=== PATIENT | male | born 1960 | race Caucasian/White ===

== ENCOUNTER 2017-08-26 14:57 | Emergency (ER) | payer SELFPAY ==
[2017-08-26 15:13] VITALS: BP 128/78; PULSE 80; RESP 16; O2SAT 100
[2017-08-26] MEDS ORDERED: TETANUS/DIPHTHERIA TOXOID ADULT 0.5 ML VIAL IM ONE (15:45)
[2017-08-26 16:19] LABS: AUTOMATED NEUTROPHIL # 5.2 TH/MM3 (1.8-7.7); BASOPHIL # 0.1 TH/MM3 (0-0.2); BASOPHIL % 1.2 % (0.0-2.0); EOSINOPHIL # 0.1 TH/MM3 (0-0.4); HEMATOCRIT 41.6 % (39.0-51.0); HEMO FLAGS DIFF FINAL; LYMPH % 18.3 % (9.0-44.0); LYMPHOCYTE # 1.3 TH/MM3 (1.0-4.8); MEAN CELL VOLUME 95.8 FL (80.0-100.0); MEAN CORPUSCULAR HEMOGLOBIN 32.9 PG (27.0-34.0); MEAN CORPUSCULAR HGB CONC 34.4 % (32.0-36.0); MONO % 8.3 % (0.0-8.0); NEUT % 71.2 % (16.0-70.0); PLATELET COUNT 233 TH/MM3 (150-450); RED BLOOD COUNT 4.35 MIL/MM3 (4.50-5.90); RED CELL DISTRIBUTION WIDTH 13.4 % (11.6-17.2); WHITE BLOOD COUNT 7.3 TH/MM3 (4.0-11.0)
--- NOTE | 2017-08-26 16:34 | PD ---
HPI Chief Complaint: Psychiatric Symptoms Time Seen by Provider: 15:14 Travel History International Travel<30 days: No Contact w/Intl Traveler<30days: No Traveled to known affect area: No History of Present Illness HPI 57-year-old male that presents to the ED for evaluation of psychiatric illness. Patient was brought here by police for him to be evaluated by psychiatry for Jose Ramon. Apparently he has a history of schizo affective disorder and bipolar. He apparently does not take care of himself and has refused to see his own doctor on his own and police got involved and per record ordered he was sent here for evaluation. Per patient he has no psychiatric illness and was never diagnosed with any psychiatric illness and states that he does not believe he has schizophrenia. He denies any hallucinations. No suicidal or homicidal ideation. Some alcohol abuse but no substance abuse per patient. He denies any medical issues at this time. He denies taking any medications of any kind. Per medical records he does have a history of schizoaffective disorder. Most per patient is not very forthcoming with information and denies any psychiatric illness. History is limited because of this. He denies any hallucinations. PFSH Past Medical History Bipolar Disorder: Yes Cancer: No (See EMR) Diminished Hearing: No Headaches: No (See EMR) Schizophrenia: Yes Past Surgical History Eye Surgery: Yes (TO RIGHT EYE FROM TOO MUCH SUN) Social History Alcohol Use: No Tobacco Use: Yes (3-4 PPD) Allergies-Medications (Allergen,Severity, Reaction): Coded Allergies: penicillin G (Unverified Allergy, Unknown, 08/26/17) Reported Meds & Prescriptions Reported Meds & Active Scripts Active No Active Prescriptions or Reported Medications Review of Systems ROS Limitations: Poor Historian Except as stated in HPI: all other systems reviewed are Neg Physical Exam Exam Limitations: Poor Historian Narrative GENERAL: SKIN: Warm and dry. HEAD: Atraumatic. Normocephalic. EYES: Pupils equal and round. No scleral icterus. No injection or drainage. ENT: No nasal bleeding or discharge. Mucous membranes pink and moist. Tongue is midline. No uvula deviation. NECK: Trachea midline. No JVD. CARDIOVASCULAR: Regular rate and rhythm. No murmurs, S3, S4. RESPIRATORY: No accessory muscle use. Clear to auscultation. Breath sounds equal bilaterally. GASTROINTESTINAL: Abdomen soft, non-tender, nondistended. Hepatic and splenic margins not palpable. MUSCULOSKELETAL: Extremities without clubbing, cyanosis, or edema. No obvious deformities. Full range of motion of the upper and lower extremities bilaterally. 2+ pulses bilaterally. NEUROLOGICAL: Awake and alert. No obvious cranial nerve deficits. Motor grossly within normal limits. Five out of 5 muscle strength in the arms and legs. Normal speech. PSYCHIATRIC: Appropriate mood and affect; insight and judgment normal. Data Data Last Documented VS Vital Signs Date Time Temp Pulse Resp B/P (MAP) Pulse Ox O2 Delivery O2 Flow Rate FiO2 08/26/17 15:13 80 16 128/78 (95) 100 Orders Orders Complete Blood Count With Diff (08/26/17 15:13) Comprehensive Metabolic Panel (08/26/17 15:13) Psych Screen (08/26/17 15:13) Drug Screen, Random Urine (08/26/17 15:13) Alcohol (Ethanol) (08/26/17 15:13) Salicylates (Aspirin) (08/26/17 15:13) Tylenol (Acetaminophen) (08/26/17 15:13) Wound Care (08/26/17 15:41) Tetanus/Diphtheria Tox Adult (Tetanus/Di (08/26/17 15:45) Diet Regular Basic (08/26/17 Dinner) Labs Laboratory Tests Test 08/26/17 15:23 White Blood Count 7.3 TH/MM3 Red Blood Count 4.35 MIL/MM3 Hemoglobin 14.3 GM/DL Hematocrit 41.6 % Mean Corpuscular Volume 95.8 FL Mean Corpuscular Hemoglobin 32.9 PG Mean Corpuscular Hemoglobin Concent 34.4 % Red Cell Distribution Width 13.4 % Platelet Count 233 TH/MM3 Mean Platelet Volume 7.6 FL Neutrophils (%) (Auto) 71.2 % Lymphocytes (%) (Auto) 18.3 % Monocytes (%) (Auto) 8.3 % Eosinophils (%) (Auto) 1.0 % Basophils (%) (Auto) 1.2 % Neutrophils # (Auto) 5.2 TH/MM3 Lymphocytes # (Auto) 1.3 TH/MM3 Monocytes # (Auto) 0.6 TH/MM3 Eosinophils # (Auto) 0.1 TH/MM3 Basophils # (Auto) 0.1 TH/MM3 CBC Comment DIFF FINAL Differential Comment MDM Medical Decision Making Medical Screen Exam Complete: Yes Emergency Medical Condition: Yes Medical Record Reviewed: Yes Interpretation(s) CBC Diagram 08/26/17 15:23 Differential Diagnosis Depression versus suicidal ideation versus anxiety versus adjustment disorder versus mood disorder versus bipolar disorder versus schizophrenia versus paranoid disorder versus psychosis versus substance abuse versus alcohol abuse versus alcohol induced psychosis versus homicidality addition versus cutting versus personality disorder Narrative Course 57-year-old male that presents to the ED for evaluation of psychiatric illness. Patient was properly examined and was found to have signs and symptoms consistent with psychiatric illness. No sign of acute medical distress. Labs were drawn. Patient will be medically clear. Okay to be seen by psych. Mental health screening was discussed with the patient. Diagnosis Primary Impression: Schizoaffective disorder Qualified Codes: F25.9 - Schizoaffective disorder, unspecified Scripts No Active Prescriptions or Reported Meds Billy Mack Aug 26, 2017 16:34
[2017-08-26 16:35] LABS: ANION GAP 7 MEQ/L (5-15)
[2017-08-26 16:53] LABS: ACETAMINOPHEN LESS THAN 2.0 MCG/ML (10.0-30.0); ALCOHOL LESS THAN 3 MG/DL (0-5); ALKALINE PHOSPHATASE 64 U/L (45-117); ALT (GPT) 24 U/L (12-78); AST (GOT) 21 U/L (15-37); BICARBONATE 26.9 MEQ/L (21.0-32.0); BLOOD UREA NITROGEN 14 MG/DL (7-18); CHLORIDE 104 MEQ/L (98-107); GLOMERULAR FILTRATION RATE 78 ML/MIN (>89); POTASSIUM 4.1 MEQ/L (3.5-5.1); SODIUM (NA) 138 MEQ/L (136-145); TOTAL BILIRUBIN ADULT 0.3 MG/DL (0.2-1.0)
[2017-08-26 18:00] VITALS: BP 116/61; PULSE 67; RESP 18; TEMP 99.1; O2SAT 99
[2017-08-27 02:21] VITALS: BP 137/74; PULSE 62; RESP 17; O2SAT 100
[2017-08-27 06:24] VITALS: BP 123/65; PULSE 67; RESP 17; TEMP 98.9; O2SAT 97
[2017-08-27 11:00] VITALS: BP 110/63; PULSE 78; RESP 18; TEMP 98.9; O2SAT 98
[2017-08-27] MEDS ORDERED: ARIP10IN IM (12:19)
--- NOTE | 2017-08-27 12:27 | PD ---
History of Present Illness Chief Complaint: Psychiatric Symptoms Time Seen by Provider: 11:00 Travel History International Travel<30 Days: No Contact w/Intl Traveler<30days: No Known affected area: No Legal Status Legal Status: Involuntary History of Present Illness: 57-year-old male presents under a court order for psychiatric evaluation. Patient was admitted here in approximately February 2016. He does carry a diagnosis of schizophrenia disorder. At the time of his last admission he was grossly psychotic, harassing other people in a threatening manner and could not be redirected. At this time, the patient is calm, pleasant and cooperative. He reportedly has multiple jain writings in his home but he denies any illegal activity or thoughts of harming himself or others. This physician understands the patient has not been reportedly willing to accept outpatient treatment. However, the patient is willing to accept a long-acting injection of Abilify Maintena from this physician and states he has been on oral Abilify in the past. Patient denies any suicidal or homicidal ideation, plan or intent. He denies psychotic symptoms. He is aware of his diagnosis. Apparently he told the emergency room physician he did not have a psychiatric diagnosis. He is currently verbally suzanne for safety and he is felt to be competent to do so. There is also some question that the patient is inappropriately using the trust fund left to him by his father. This physician does not have adequate information to make any judgment about that. Patient does report having a trust fund from which she pays his bills. He also stays in the house that is owned by the trust set up by his father. He can stay in this house until he dies, according to his own report. Therefore, he is not felt to meet Lloyd act criteria or criteria for involuntary psychiatric hospitalization. PFSH Past Medical History Bipolar Disorder: Yes Cancer: No (See EMR) Diminished Hearing: No Headaches: No (See EMR) Schizophrenia: Yes Past Surgical History Eye Surgery: Yes (TO RIGHT EYE FROM TOO MUCH SUN) Psychiatric History Psychiatric History Hx Psychiatric Treatment: PATIENT WAS LAST ADMITTED TO [facility] FROM 03/03/16 TO 03/09/16 FOR SCHIZOAFFECTIVE DISORDER. This physician also sees a diagnosis of bipolar disorder. It is this physician's opinion the patient actually has paranoid schizophrenia. History of Inpatient Treatment: Yes Guns or firearms in home: No Social History Hx Alcohol Use: No Hx Tobacco Use: Yes (3-4 PPD) Hx Substance Use: Yes Substance Use Type: Alcohol Other Substances Used: Past crack and cocaine use. Marijuana last over a year ago Hx of Substance Use Treatment: No Allergies-Medications (Allergen,Severity, Reaction): Coded Allergies: penicillin G (Unverified Allergy, Unknown, 08/26/17) Reported Meds & Prescriptions Reported Meds & Active Scripts Active Abilify Maintena Dual Chamber Inj (Aripiprazole) 400 Mg Inj 400 Mg IM Q28D Review of Systems Except as stated in HPI: all other systems reviewed are Neg Mental Status Examination Appearance: Appropriate Consciousness: Alert Orientation: x4 Motor Activity: Normal gait Speech: Unremarkable Language: Adequate Fund of Knowledge: Adequate Attention and Concentration: Adequate Memory: Unremarkable Mood: Appropriate Affect: Appropriate Thought Process & Associations: Intact Thought Content: Bizarre thinking Hallucination Type: None Delusion Type: None Suicidal Ideation: No Suicidal Plan: No Suicidal Intention: No Homicidal Ideation: No Homicidal Plan: No Homicidal Intention: No Insight: Adequate Judgment: Adequate MDM Medical Decision Making Medical Record Reviewed: Yes Assessment/Plan Patient interviewed at bedside and past medical record reviewed. This physician spoke with the signing agent, Deniz regarding the patient's past treatment history and conversation with patient's current guardian. This physician is unable to provide an opinion regarding the patient's capacity to live independently, etc. Patient is being seen in the hospital for medical and psychiatric treatment but not for an evaluation as to guardianship. Patient denies suicidal or homicidal ideation, plan or intent. He denies psychotic thinking. His cognition is intact. He is verbally suzanne for safety and he is competent to do so. He is willing to accept treatment. He is therefore being treated and released. Orders Orders Complete Blood Count With Diff (08/26/17 15:13) Comprehensive Metabolic Panel (08/26/17 15:13) Psych Screen (08/26/17 15:13) Drug Screen, Random Urine (08/26/17 15:13) Alcohol (Ethanol) (08/26/17 15:13) Salicylates (Aspirin) (08/26/17 15:13) Tylenol (Acetaminophen) (08/26/17 15:13) Wound Care (08/26/17 15:41) Tetanus/Diphtheria Tox Adult (Tetanus/Di (08/26/17 15:45) Diet Regular Basic (08/26/17 Dinner) Diet Regular Basic (08/27/17 Breakfast) ^ Other Nursing Orders (08/27/17 12:16) Results Vital Signs Date Time Temp Pulse Resp B/P (MAP) Pulse Ox O2 Delivery O2 Flow Rate FiO2 08/27/17 11:00 98.9 78 18 110/63 (79) 98 Room Air 08/27/17 06:24 98.9 67 17 123/65 (84) 97 08/27/17 02:21 62 17 137/74 (95) 100 Room Air 08/26/17 18:00 99.1 67 18 116/61 (79) 99 Room Air 08/26/17 15:13 80 16 128/78 (95) 100 Laboratory Tests Test 08/26/17 15:23 White Blood Count 7.3 Red Blood Count 4.35 Hemoglobin 14.3 Hematocrit 41.6 Mean Corpuscular Volume 95.8 Mean Corpuscular Hemoglobin 32.9 Mean Corpuscular Hemoglobin Concent 34.4 Red Cell Distribution Width 13.4 Platelet Count 233 Mean Platelet Volume 7.6 Neutrophils (%) (Auto) 71.2 Lymphocytes (%) (Auto) 18.3 Monocytes (%) (Auto) 8.3 Eosinophils (%) (Auto) 1.0 Basophils (%) (Auto) 1.2 Neutrophils # (Auto) 5.2 Lymphocytes # (Auto) 1.3 Monocytes # (Auto) 0.6 Eosinophils # (Auto) 0.1 Basophils # (Auto) 0.1 CBC Comment DIFF FINAL Differential Comment Blood Urea Nitrogen 14 Creatinine 0.99 Random Glucose 91 Total Protein 7.2 Albumin 3.8 Calcium Level 8.5 Alkaline Phosphatase 64 Aspartate Amino Transf (AST/SGOT) 21 Alanine Aminotransferase (ALT/SGPT) 24 Total Bilirubin 0.3 Sodium Level 138 Potassium Level 4.1 Chloride Level 104 Carbon Dioxide Level 26.9 Anion Gap 7 Estimat Glomerular Filtration Rate 78 Salicylates Level 2.3 Urine Opiates Screen NEG Acetaminophen Level LESS THAN 2.0 Urine Barbiturates Screen NEG Urine Amphetamines Screen NEG Urine Benzodiazepines Screen NEG Urine Cocaine Screen NEG Urine Cannabinoids Screen NEG Ethyl Alcohol Level LESS THAN 3 Diagnosis Primary Impression: Paranoid schizophrenia Prescriptions Aripiprazole Maintena Dual Chamber Inj (Abilify Maintena Dual Chamber Inj) 400 Mg Inj 400 MG IM Q28D, #1 SYRINGE 2 Refills Prov: Monico Avendaño MD 08/27/17 Monico Avendaño MD Aug 27, 2017 12:27
[2017-08-27] MEDS ORDERED: ABILIFY MAINTENA 400 MG ONE (14:45)
--- NOTE | 2017-08-27 15:41 | PD ---
Physical Exam Date Seen by Provider: Aug 27, 2017 Time Seen by Provider: 15:37 Data Data Last Documented VS Vital Signs Date Time Temp Pulse Resp B/P (MAP) Pulse Ox O2 Delivery O2 Flow Rate FiO2 08/27/17 11:00 98.9 78 18 110/63 (79) 98 Room Air Orders Orders Complete Blood Count With Diff (08/26/17 15:13) Comprehensive Metabolic Panel (08/26/17 15:13) Psych Screen (08/26/17 15:13) Drug Screen, Random Urine (08/26/17 15:13) Alcohol (Ethanol) (08/26/17 15:13) Salicylates (Aspirin) (08/26/17 15:13) Tylenol (Acetaminophen) (08/26/17 15:13) Wound Care (08/26/17 15:41) Tetanus/Diphtheria Tox Adult (Tetanus/Di (08/26/17 15:45) Diet Regular Basic (08/26/17 Dinner) Diet Regular Basic (08/27/17 Breakfast) ^ Other Nursing Orders (08/27/17 12:16) Diet Regular Basic (08/27/17 Lunch) Non-Formulary Drug (08/27/17 14:45) Labs Laboratory Tests Test 08/26/17 15:23 White Blood Count 7.3 TH/MM3 Red Blood Count 4.35 MIL/MM3 Hemoglobin 14.3 GM/DL Hematocrit 41.6 % Mean Corpuscular Volume 95.8 FL Mean Corpuscular Hemoglobin 32.9 PG Mean Corpuscular Hemoglobin Concent 34.4 % Red Cell Distribution Width 13.4 % Platelet Count 233 TH/MM3 Mean Platelet Volume 7.6 FL Neutrophils (%) (Auto) 71.2 % Lymphocytes (%) (Auto) 18.3 % Monocytes (%) (Auto) 8.3 % Eosinophils (%) (Auto) 1.0 % Basophils (%) (Auto) 1.2 % Neutrophils # (Auto) 5.2 TH/MM3 Lymphocytes # (Auto) 1.3 TH/MM3 Monocytes # (Auto) 0.6 TH/MM3 Eosinophils # (Auto) 0.1 TH/MM3 Basophils # (Auto) 0.1 TH/MM3 CBC Comment DIFF FINAL Differential Comment Blood Urea Nitrogen 14 MG/DL Creatinine 0.99 MG/DL Random Glucose 91 MG/DL Total Protein 7.2 GM/DL Albumin 3.8 GM/DL Calcium Level 8.5 MG/DL Alkaline Phosphatase 64 U/L Aspartate Amino Transf (AST/SGOT) 21 U/L Alanine Aminotransferase (ALT/SGPT) 24 U/L Total Bilirubin 0.3 MG/DL Sodium Level 138 MEQ/L Potassium Level 4.1 MEQ/L Chloride Level 104 MEQ/L Carbon Dioxide Level 26.9 MEQ/L Anion Gap 7 MEQ/L Estimat Glomerular Filtration Rate 78 ML/MIN Salicylates Level 2.3 MG/DL Urine Opiates Screen NEG Acetaminophen Level LESS THAN 2.0 MCG/ML Urine Barbiturates Screen NEG Urine Amphetamines Screen NEG Urine Benzodiazepines Screen NEG Urine Cocaine Screen NEG Urine Cannabinoids Screen NEG Ethyl Alcohol Level LESS THAN 3 MG/DL MDM Medical Record Reviewed: Yes Supervised Visit with SHARLA: No Narrative Course 57-year-old male with history of paranoid schizophrenia presented to the emergency room previously under court order for medical and psychiatric evaluation because he was refusing outpatient help. Patient initially seen by Billy Mack, ER provider and was medically cleared to see the psychiatrist. He denied any medical complaints. Physical exam is unremarkable. Vital signs stable. Blood work unremarkable. The psychiatrist evaluated the patient and gave him long-acting Abilify injections to be administered every 28 days to help with outpatient compliance. He is stable for discharge. Patient is not to be released from the hospital unless his guardian is informed. 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 Diagnosis Primary Impression: Paranoid schizophrenia Referrals: Psychiatrist Additional Instruction: Take medication as directed. Follow-up per psychiatrist's recommendations. Scripts Aripiprazole Maintena Dual Chamber Inj (Abilify Maintena Dual Chamber Inj) 400 Mg Inj 400 MG IM Q28D, #1 SYRINGE 2 Refills Prov: Monico Avendaño MD 08/27/17 Disposition: 01 DISCHARGE HOME Condition: Stable Gregoria Tran Aug 27, 2017 15:41
== END 2017-08-27 16:28 | disposition home or self-care (01) ==
LOC: NEPJ 14:57
DX: F20.0 Paranoid schizophrenia (principal); F31.9 Bipolar disorder, unspecified; F17.200 Nicotine dependence, unspecified, uncomplicated; Z88.0 Allergy status to penicillin; Z23 Encounter for immunization
CPT/HCPCS: 80053; 80307; 85025; 90471; 90714; 96372